=== PATIENT | male | born 1990 | race Caucasian/White ===

== ENCOUNTER 2016-08-22 20:04 | Emergency (ER) | payer BC ==
[~2016-08-22] VITALS: Ht 177.8 cm; Wt 82.3 kg
[2016-08-22 20:09] VITALS: TEMP 36.8; Ht 177.8 cm; Wt 82.3 kg
[2016-08-22] MEDS ORDERED: CYCL10TA6 PO (20:52)
[2016-08-22] MEDS ORDERED: FLEXERIL HOME PACK 10 MG VIAL PO ONE (21:00)
[2016-08-22 21:08] VITALS: BP 141/79; PULSE 81; O2SAT 98
--- NOTE | 2016-08-22 21:21 | EMERGENCY ROOM VISIT NOTE ---
ED Visit Note First contact with patient: 20:14 Chief Complaint: Back pain. History of Present Illness: Mr. Paige is a 26-year-old white male who ambulates into the ED accompanied by his complaining of left-sided lumbar back pain. Patient reports he normally lifts weights for exercise. The last week he reports he had multiple GI symptoms that have subsequently resolved. Today he returned lifting weights and when he lifted his last weight he could not control the lIft, twisted his back and reports having pain throughout most of the day. The injury occurred approximately 8 AM this morning. He reports initially the pain was mild but has gradually increased in intensity throughout the day. Currently he describes his pain as a sharp sensation. The discomfort is located over the L4-L5 area on the left side of the spine. He currently rates the discomfort 4/10 but does report it has been this high a 7/10. He reports mild radiation of the discomfort into the left buttocks. His pain worsens with flexion and extension of the waist and moving from the sitting to the standing position. He has mildly decreased with the use of ibuprofen. He denies any associated symptoms including fevers, chills, sweats, skin eruptions, previous significant injuries or surgeries to the back, abdominal pain, nausea, vomiting, diarrhea, constipation, rectal bleeding, black/tarry stools, urinary symptoms, hematuria, flank pain, bowel and bladder dysfunction, genital/rectal paresthesias, lower extremity weakness/numbness/tingling. Review of Systems: As noted above in history of present illness. 8 body systems were reviewed and found to be negative as noted above. Past Medical History: Hernia repair. Current Medications: Patient denies. Allergies to Medications: Patient denies. Social History: Patient is currently employed; he lives with his and feels safe in his home environment; he denies tobacco and alcohol use. Physical Examination: Vital Signs: Date Time Temp Pulse Resp B/P Pulse Ox O2 Delivery O2 Flow Rate FiO2 08/22/16 20:09 36.8 73 18 147/78 98 Room Air GENERAL: 26-year-old male in mild distress due to pain, nontoxic-appearing, afebrile and hemodynamically stable. NEUROLOGICAL: Awake, alert and oriented to person, place and time. Answering questions appropriately and following commands. Normal gait. Good hand eye coordination. No focal motoror sensory deficits. SKIN: Warm, dry and pink. No soft tissue eruptions or trauma noted. BACK: No tenderness over the bony thoracic and lumbar spines. Minimal tenderness over the left-sided paraspinous muscles with obvious spasm. No CVA tenderness. Decreased range of motion in flexion and extension at the waist. Negative straight leg raise test. THORAX: Lungs sounds are clear to auscultation and equal bilaterally with symmetrical chest wall. ABDOMEN: Flat, soft and nontender. Positive bowel sounds in all quadrants. No guarding, rigidity or organomegaly. EXTREMITIES: Moves all extremities well on command and with purpose. All distal neurovascular statuses are intact and equal bilaterally. 5/5 muscle strength in hip flexion, extension, abduction and abduction, knee flexion and extension and plantar flexion and dorsiflexion of the ankles. 2+ patellar and Achilles deep tendon reflexes intact and equal bilaterally. Able to distinguish light sensations through all dermatomes of the lower extremities. No calf tenderness or cords. ED Course: Patient is assessed as noted above. Patient was offered pain medications and refused. Patient was educated about tonight's findings and instructed on his treatment plan; he verbalizes understanding and agreement with this plan. Clinical Impression: Lumbar paraspinous muscle spasm. Disposition: Patient discharged home in stable condition accompanied by his ; prior to departure he was reassessed and subjectively reportedhe was feeling the same and rated his discomfort 4/10. Plan: Comfort measures were discussed with the patient including alternating ibuprofen and acetaminophen, ice, avoid weight lifting and using proper lifting and moving techniques. Patient was prescribed Flexeril 10 mg every 8 hours for muscle spasm. Patient was encouraged to follow-up with family physician for recheck and 4-5 days if no better. Patient was encouraged return ED for worsening/uncontrolled pain, rectal/ genital paresthesias, bowel and bladder dysfunction, lower extremity weakness/ numbness/tingling or any new/concerning symptoms.
== END 2016-08-22 21:10 | disposition home or self-care (01) ==
LOC: C.EDB 20:06 → C.EDD 21:10
DX: M62.830 Muscle spasm of back (principal)